=== PATIENT | male | born 1965 | race Two or more races ===

== ENCOUNTER 2023-05-08 22:56 | Emergency (ER) | payer BC, OTHER ==
[~2023-05-08] VITALS: Ht 172.7 cm; Wt 127.0 kg
[2023-05-08 23:59] VITALS: BP 136/99; PULSE 97; RESP 20; TEMP 98.1; O2SAT 96
[2023-05-09] MEDS ORDERED: CYCL-839 PO (00:21)
[2023-05-09] MEDS: KETOROLAC TROMETH 60MG/2ML VIAL IM ONE (00:30)
== END 2023-05-09 00:37 | disposition home or self-care (01) ==
LOC: ER 22:56
DX: S29.012A Strain of muscle and tendon of back wall of thorax, initial encounter (principal); R05.9 Cough, unspecified; I10 Essential (primary) hypertension; E11.9 Type 2 diabetes mellitus without complications; I48.91 Unspecified atrial fibrillation; X58.XXXA Exposure to other specified factors, initial encounter; Y93.89 Activity, other specified; Y92.89 Other specified places as the place of occurrence of the external cause; Y99.8 Other external cause status
CPT/HCPCS: 96372; 99283; J1885